=== PATIENT | female | born 1975 | race Caucasian/White ===

== ENCOUNTER 2016-04-05 13:05 | Inpatient (IN) | payer OTHER ==
[2016-04-05 15:09] VITALS: BMI 20.2
--- NOTE | 2016-04-05 15:39 | HP ---
CIWA Score - CIWA Score Nausea/Vomitin-No Nausea/No Vomiting Muscle Tremors: 4-Moderate,w/Arms Extend Anxiety: 4-Mod. Anxious/Guarded Agitation: 4-Moderately Restless Paroxysmal Sweats: 3 Orientation: 0-Oriented Tacttile Disturbances: 0-None Auditory Disturbances: 0-None Visual Disturbances: 0-None Headache: 1-Very Mild CIWA-Ar Total Score: 16 Admission ROS BHS - HPI Chief Complaint: I am here for detox for treatment. Allergies/Adverse Reactions: Allergies Allergy/AdvReac Type Severity Reaction Status Date / Time Fish Containing Products Allergy Severe Swelling Verified 04/05/16 15:18 NKDA Allergy Uncoded 04/05/16 15:19 History of Present Illness: Pt is a 41yr old female with a history of alcohol dependence seeking detox for treatment. pt is on a [facility] program getting 70mg of methadone last dose receive today. Exam Limitations: Other (very sleepy/groggy) - Ebola screening Have you traveled outside of the country in the last 21 days: No Have you had contact with anyone from an Ebola affected area: No Have you been sick,other than usual withdrawal symptoms: No Do you have a fever: No - Review of Systems Constitutional: Chills, Diaphoresis, Loss of Appetite, Night Sweats EENT: reports: Tearing, Nose Congestion Respiratory: reports: No Symptoms reported Cardiac: reports: No Symptoms Reported GI: reports: Poor Appetite, Poor Fluid Intake : reports: No Symptoms Reported Musculoskeletal: reports: No Symptoms Reported Integumentary: reports: Flushing, Sweating Neuro: reports: Headache, Tingling, Tremors Endocrine: reports: Excessive Sweating, Flushing, Intolerance to Cold, Intolerance to Heat Hematology: reports: No Symptoms Reported Psychiatric: reports: Judgement Intact, Mood/Affect Appropiate, Orientated x3, Agitated, Anxious Other Systems: Reviewed and Negative Patient History - Patient Medical History Hx Anemia: No Hx Asthma: No Hx Chronic Obstructive Pulmonary Disease (COPD): No Hx Cancer: No Hx Cardiac Disorders: No Hx Congestive Heart Failure: No Hx Hypertension: No Hx Hypercholesterolemia: No Hx Pacemaker: No HX Cerebrovascular Accident: No Hx Seizures: No Hx Dementia: No Hx Diabetes: No Hx Gastrointestinal Disorders: No Hx Liver Disease: No Hx Genitourinary Disorders: No Hx Sexually Transmitted Disorders: No Hx Renal Disease (ESRD): No Hx Thyroid Disease: No Hx Human Immunodeficiency Virus (HIV): No (negative) Hx Hepatitis C: Yes Hx Depression: No Hx Suicide Attempt: No (denies) Hx Bipolar Disorder: No Hx Schizophrenia: No - Patient Surgical History Past Surgical History: Yes Hx Section: Yes (2 ) - PPD History Previous Implant?: Yes Documented Results: Negative w/o proof Implanted On Prior [facility] Admission?: No PPD to be Administered?: Yes - Reproductive History Patient is a Female of Child Bearing Age (11 -55 yrs old): Yes Last Menstrual Period: 03/19/16 Patient : No - Smoking Cessation Smoking history: Current every day smoker Have you smoked in the past 12 months: Yes Aproximately how many cigarettes per day: 10 Hx Chewing Tobacco Use: No Initiated information on smoking cessation: Yes 'Breaking Loose' booklet given: 04/05/16 - Substance & Tx. History Hx Alcohol Use: Yes Hx Substance Use: Yes Substance Use Type: None, Cocaine, Heroin Hx Substance Use Treatment: Yes - Substances Abused Heroin Route: Injection Frequency: Daily Amount used: 5-10bags Age of first use: 19 Date of Last Use: 04/05/16 Cocaine Route: Injection Frequency: Daily Amount used: 5-10 bags Age of first use: 19 Date of Last Use: 04/05/16 Alcohol-beer Route: Oral Frequency: Daily Amount used: 2-3 40oz beer Age of first use: 30 Date of Last Use: 04/05/16 Family Disease History - Family Disease History Family History: Denies Admission Physical Exam S - Vital Signs Vital Signs: Vital Signs - 24 hr 04/05/16 15:04 Temperature 97.6 F Pulse Rate 76 Respiratory 16 Rate Blood Pressure 105/63 - Physical General Appearance: Yes: Appropriately Dressed, Moderate Distress, Thin, Tremorous, Irritable, Sweating HEENTM: Yes: Normal Voice, Rhinorrhea Respiratory: Yes: Lungs Clear, Normal Breath Sounds, No Respiratory Distress Neck: Yes: No masses,lesions,Nodules Breast: Yes: Within Normal Limits Cardiology: Yes: Regular Rhythm, Regular Rate, S1, S2 Abdominal: Yes: Normal Bowel Sounds Genitourinary: Yes: Within Normal Limits Back: Yes: Normal Inspection Musculoskeletal: Yes: Gait Steady Extremities: Yes: Normal Capillary Refill, Normal Inspection, Non-Tender, Tremors Neurological: Yes: Fully Oriented, Alert, Normal Response Integumentary: Yes: Normal Color, Diaphoresis, Track [place] Lymphatic: Yes: Within Normal Limits - Diagnostic (1) Cocaine dependence Current Visit: Yes Status: Chronic Qualifiers: Substance use status: uncomplicated Qualified Code(s): F14.20 - Cocaine dependence, uncomplicated (2) Uncomplicated opioid dependence Current Visit: Yes Status: Chronic (3) Alcohol dependence with uncomplicated withdrawal Current Visit: Yes Status: Chronic (4) Nicotine dependence Current Visit: Yes Status: Chronic Qualifiers: Nicotine product type: cigarettes Substance use status: uncomplicated Qualified Code(s): F17.210 - Nicotine dependence, cigarettes, uncomplicated (5) Hepatitis C Current Visit: Yes Status: Chronic Cleared for Admission S - Detox or Rehab [facility] Level of Care: Medically Managed Detox Regimen/Protocol: Librium [facility] Breath Alcohol Content Breath Alcohol Content: 0 Urine Pregancy Test - Result Urine Test Results: Negative- NO Line Present Urine Drug Screen - Results Urine Drug Screen Results: BELLA-Cocaine, OPI-Opiates, MTD-Methadone, OXY- Oxycodone
[2016-04-05] MEDS ORDERED: MAG HYDROX/AL HYDROX/SIMETH 30 ML UNIT-DOSE CUP PO PRN (16:00)
[2016-04-05] MEDS ORDERED: guaiFENesin/D-METHORPHAN HB 10 ML UNIT-DOSE CUPS PO PRN (16:00)
[2016-04-05] MEDS ORDERED: ACETAMINOPHEN 325 MG TABLET (FP) PO PRN (16:00)
[2016-04-05] MEDS ORDERED: hydrOXYzine PAMOATE 50 MG CAPSULE (FP) PO PRN (16:00)
[2016-04-05] MEDS ORDERED: LOPERAMIDE HCL 2 MG CAPSULE PO PRN (16:00)
[2016-04-05] MEDS ORDERED: MAGNESIUM CITRATE 300 ML BOTTLE PO PRN (16:00)
[2016-04-05] MEDS ORDERED: chlordiazePOXIDE HCL 25 MG CAPSULE PO PRN (16:00)
[2016-04-05] MEDS ORDERED: IBUPROFEN 400 MG TABLET (FP) PO PRN (16:00)
[2016-04-05] MEDS ORDERED: P-EPHED 60MG/TRIPROLIDI 2.5MG TABLET PO PRN (16:00)
[2016-04-05] MEDS ORDERED: MENTHOL/PHENOL 1 EACH UD MM PRN (16:00)
[2016-04-05] MEDS ORDERED: diphenhydrAMINE HCL 50 MG CAPSULE PO PRN (16:00)
[2016-04-05] MEDS ORDERED: MAGNESIUM HYDROX 2400MG/30ML ORAL SUSPENSION 30 ML CUP PO PRN (16:00)
[2016-04-05] MEDS ORDERED: chlordiazePOXIDE HCL 25 MG CAPSULE PO ONE (17:30)
[2016-04-05] MEDS: chlordiazePOXIDE HCL 25 MG CAPSULE PO SCH ×2 (17:32→22:11)
[2016-04-05] MEDS: THIAMINE HCL 100 MG TABLET (FP) PO SCH (22:11)
[2016-04-06 03:16] LABS: URINE APPEARANCE SLCLOUDY; URINE BILIRUBIN NEGATIVE (NEGATIVE); URINE BLOOD NEGATIVE (NEGATIVE); URINE COLOR YELLOW; URINE GLUCOSE (UA) NEGATIVE (NEGATIVE); URINE KETONE NEGATIVE (NEGATIVE); URINE LEUK ESTERASE NEGATIVE (NEGATIVE); URINE NITRITE POSITIVE (NEGATIVE); URINE PROTEIN NEGATIVE (NEGATIVE); URINE UROBILINOGEN 4.0 E.U/dl E.U./dl (0.2-1.0)
[2016-04-06 03:39] LABS: URINE BACTERIA RARE /hpf (NONE SEEN); URINE MUCUS RARE; URINE RBC 1 /hpf (0-3); URINE WBC 2 /hpf (3-5)
[2016-04-06] MEDS: chlordiazePOXIDE HCL 25 MG CAPSULE PO SCH ×4 (06:04→22:33)
[2016-04-06] MEDS ORDERED: METHADONE HCL 10 MG TABLET PO ONE (10:44)
[2016-04-06] MEDS: NICOTINE POLACRILEX 4 MG GUM BC PRN (10:53)
[2016-04-06] MEDS: PRENATAL VITAMINS W/ FOLIC ACID TABLET (FP) PO SCH (10:53)
[2016-04-06] MEDS: NICOTINE 21 MG/24 HOURS TOPICAL PATCH TD SCH (10:53)
[2016-04-06 11:14] LABS: ALBUMIN 3.1 g/dl (3.4-5.0); ANION GAP 7 (8-16); CALCIUM 8.3 mg/dL (8.5-10.1); CO2 27 mmol/L (21-32); GLUCOSE,RANDOM 103 mg/dL (74-106); SGOT/AST 41 U/L (15-37); SGPT/ALT 43 U/L (12-78)
[2016-04-06] MEDS ORDERED: METHADONE 40 MG, METHADONE 30 MG PO ONE (11:15)
[2016-04-06 11:16] LABS: ALK PHOS 47 U/L (45-117); BILIRUBIN,TOTAL 0.2 mg/dL (0.2-1.0); CREATININE 0.9 mg/dL (0.55-1.02); TOT PROT 6.5 g/dl (6.4-8.2)
[2016-04-06 11:18] LABS: MCH 24.7 pg (25.7-33.7); MEAN CELL VOLUME 77.2 fl (80-96); MEAN PLT VOLUME 9.1 fl (7.5-11.1); PLATELET COUNT 77 K/MM3 (134-434); RDW 16.5 % (11.6-15.6)
[2016-04-06 11:22] LABS: WHITE BLOOD COUNT 1.6 K/mm3 (4.0-10.0)
[2016-04-06] MEDS ORDERED: METHADONE HCL 10 MG TABLET ONE (11:31)
[2016-04-06] MEDS ORDERED: METHADONE HCL 40 MG DISPERSABLE TABLET ONE (11:31)
--- NOTE | 2016-04-06 12:35 | PN ---
S CIWA - CIWA Score Nausea/Vomitin Muscle Tremors: 3 Anxiety: 3 Agitation: 3 Paroxysmal Sweats: 1-Minimal Palms Moist Orientation: 0-Oriented Tacttile Disturbances: 1-Very Mild Itch/Numbness Auditory Disturbances: 1-Very Mild Visual Disturbances: 1-Very Mild Sensitivity Headache: 2-Mild CIWA-Ar Total Score: 18 S Progress Note (SOAP) Subjective: ALERT,IRRITABLE,ANXIOUS,INTERRUPTED SLEEP,TREMOR,PAIN IN THE BODY Objective: 04/06/16 12:29 Vital Signs Temperature 96.4 F L 04/06/16 09:43 Pulse Rate 77 04/06/16 09:43 Respiratory Rate 18 04/06/16 09:43 Blood Pressure 104/79 04/06/16 09:43 O2 Sat by Pulse Oximetry (%) EKG NSR 64/MIN NO CHEST PAIN,NO SOB,NO DIZZINESS Laboratory Last Values WBC 1.6 K/mm3 (4.0-10.0) L 04/06/16 07:50 RBC 3.87 M/mm3 (3.60-5.2) 04/06/16 07:50 Hgb 9.6 GM/dL (10.7-15.3) L 04/06/16 07:50 Hct 29.8 % (32.4-45.2) L 04/06/16 07:50 MCV 77.2 fl (80-96) L 04/06/16 07:50 MCHC 32.0 g/dl (32.0-36.0) 04/06/16 07:50 RDW 16.5 % (11.6-15.6) H 04/06/16 07:50 Plt Count 77 K/MM3 (134-434) L 04/06/16 07:50 MPV 9.1 fl (7.5-11.1) 04/06/16 07:50 Sodium 144 mmol/L (136-145) 04/06/16 07:50 Potassium 3.8 mmol/L (3.5-5.1) 04/06/16 07:50 Chloride 110 mmol/L (98-107) H 04/06/16 07:50 Carbon Dioxide 27 mmol/L (21-32) 04/06/16 07:50 Anion Gap 7 (8-16) L 04/06/16 07:50 BUN 16 mg/dL (7-18) 04/06/16 07:50 Creatinine 0.9 mg/dL (0.55-1.02) 04/06/16 07:50 Creat Clearance w eGFR > 60 (>60) 04/06/16 07:50 Random Glucose 103 mg/dL (74-106) 04/06/16 07:50 Calcium 8.3 mg/dL (8.5-10.1) L 04/06/16 07:50 Total Bilirubin 0.2 mg/dL (0.2-1.0) 04/06/16 07:50 AST 41 U/L (15-37) H 04/06/16 07:50 ALT 43 U/L (12-78) 04/06/16 07:50 Alkaline Phosphatase 47 U/L (45-117) 04/06/16 07:50 Total Protein 6.5 g/dl (6.4-8.2) 04/06/16 07:50 Albumin 3.1 g/dl (3.4-5.0) L 04/06/16 07:50 Urine Color Yellow 04/05/16 23:08 Urine Appearance Slcloudy 04/05/16 23:08 Urine pH 6.0 (5.0-8.0) 04/05/16 23:08 Ur Specific [place] 1.017 (1.001-1.035) 04/05/16 23:08 Urine Protein Negative (NEGATIVE) 04/05/16 23:08 Urine Glucose (UA) Negative (NEGATIVE) 04/05/16 23:08 Urine Ketones Negative (NEGATIVE) 04/05/16 23:08 Urine Blood Negative (NEGATIVE) 04/05/16 23:08 Urine Nitrite Positive (NEGATIVE) 04/05/16 23:08 Urine Bilirubin Negative (NEGATIVE) 04/05/16 23:08 Urine Urobilinogen 4.0 e.u/dl E.U./dl (0.2-1.0) H 04/05/16 23:08 Ur Leukocyte Esterase Negative (NEGATIVE) 04/05/16 23:08 Urine RBC 1 /hpf (0-3) 04/05/16 23:08 Urine WBC 2 /hpf (3-5) 04/05/16 23:08 Ur Epithelial Cells Few /hpf (FEW) 04/05/16 23:08 Urine Bacteria Rare /hpf (NONE SEEN) 04/05/16 23:08 Urine Mucus Rare 04/05/16 23:08 04/06/16 12:34 LABS PENDING Assessment: 04/06/16 12:35 WITHDRAWAL SYMPTOM Plan: CONTINUE DETOX,ENSURE PLUS 120 MLS PO BID,FERROUS SULFATE 325 MGS PO BID,REPEAT CBC ON Fri04/08/16 ALSO MENTIONED HISTORY OF PANCYTOPENIA
--- NOTE | 2016-04-06 12:39 | PN ---
BHS Progress Note Note: PANCYTOPENIA PROBABLY RELATED TO ALCOHOL DEPENDENCE,REPEAT CBC IN AM
--- NOTE | 2016-04-06 13:39 | EKG ---
Test Reason : Blood Pressure : / mmHG Vent. Rate : 064 BPM Atrial Rate : 064 BPM P-R Int : 158 ms QRS Dur : 080 ms QT Int : 412 ms P-R-T Axes : 054 063 073 degrees QTc Int : 425 ms NORMAL SINUS RHYTHM NONSPECIFIC T WAVE ABNORMALITY ABNORMAL ECG NO PREVIOUS ECGS AVAILABLE Confirmed by NICKOLAS BARBOZA MD ([id number]) on 04/06/2016 1:39:00 PM Referred By: Confirmed By:NICKOLAS BARBOZA MD
[2016-04-06] MEDS: THIAMINE HCL 100 MG TABLET (FP) PO SCH (22:33)
[2016-04-07] MEDS ORDERED: METHADONE HCL 40 MG DISPERSABLE TABLET ONE (04:27)
[2016-04-07] MEDS ORDERED: METHADONE HCL 10 MG TABLET ONE (04:27)
[2016-04-07] MEDS ORDERED: METHADONE HCL 40 MG DISPERSABLE TABLET PO SCH (06:00)
[2016-04-07] MEDS: chlordiazePOXIDE HCL 25 MG CAPSULE PO SCH ×2 (06:27→10:20)
[2016-04-07] MEDS: METHADONE 40 MG, METHADONE 30 MG PO SCH (08:39)
[2016-04-07 10:10] LABS: MCH 24.9 pg (25.7-33.7); MCHC 32.5 g/dl (32.0-36.0); MEAN CELL VOLUME 76.7 fl (80-96); MEAN PLT VOLUME 9.1 fl (7.5-11.1); PLATELET COUNT 75 K/MM3 (134-434); RDW 16.8 % (11.6-15.6)
[2016-04-07] MEDS: NICOTINE 21 MG/24 HOURS TOPICAL PATCH TD SCH (10:20)
[2016-04-07] MEDS: PRENATAL VITAMINS W/ FOLIC ACID TABLET (FP) PO SCH (10:20)
[2016-04-07 10:33] LABS: WHITE BLOOD COUNT 1.9 K/mm3 (4.0-10.0)
--- NOTE | 2016-04-07 12:28 | PN ---
[facility] CIWA - CIWA Score Nausea/Vomitin-No Nausea/No Vomiting Muscle Tremors: 4-Moderate,w/Arms Extend Anxiety: 4-Mod. Anxious/Guarded Agitation: 4-Moderately Restless Paroxysmal Sweats: 3 Orientation: 0-Oriented Tacttile Disturbances: 0-None Auditory Disturbances: 0-None Visual Disturbances: 0-None Headache: 0-None Present CIWA-Ar Total Score: 15 BHS Progress Note (SOAP) Subjective: anxiety,tremors,sweating,interrupted sleep,restless. Objective: 04/07/16 12:27 Vital Signs - 8 hr 04/07/16 04/07/16 06:00 10:00 Temperature 98.3 F 98.4 F Pulse Rate 87 93 H Respiratory 16 18 Rate Blood Pressure 101/66 115/67 Laboratory Tests 04/05/16 04/06/16 04/06/16 23:08 07:50 07:50 WBC 1.6 L RBC 3.87 Hgb 9.6 L Hct 29.8 L MCV 77.2 L MCHC 32.0 RDW 16.5 H Plt Count 77 L MPV 9.1 Sodium 144 Potassium 3.8 Chloride 110 H Carbon Dioxide 27 Anion Gap 7 L BUN 16 Creatinine 0.9 Creat Clearance w eGFR > 60 Random Glucose 103 Calcium 8.3 L Total Bilirubin 0.2 AST 41 H ALT 43 Alkaline Phosphatase 47 Total Protein 6.5 Albumin 3.1 L Urine Color Yellow Urine Appearance Slcloudy Urine pH 6.0 Ur Specific [place] 1.017 Urine Protein Negative Urine Glucose (UA) Negative Urine Ketones Negative Urine Blood Negative Urine Nitrite Positive Urine Bilirubin Negative Urine Urobilinogen 4.0 e.u/dl H Ur Leukocyte Esterase Negative Urine RBC 1 Urine WBC 2 Ur Epithelial Cells Few Urine Bacteria Rare Urine Mucus Rare RPR Titer T.pallidum Ab ([facility]) 04/06/16 04/07/16 07:50 07:50 WBC 1.9 L RBC 3.67 Hgb 9.1 L Hct 28.2 L MCV 76.7 L MCHC 32.5 RDW 16.8 H Plt Count 75 L MPV 9.1 Sodium Potassium Chloride Carbon Dioxide Anion Gap BUN Creatinine Creat Clearance w eGFR Random Glucose Calcium Total Bilirubin AST ALT Alkaline Phosphatase Total Protein Albumin Urine Color Urine Appearance Urine pH Ur Specific [place] Urine Protein Urine Glucose (UA) Urine Ketones Urine Blood Urine Nitrite Urine Bilirubin Urine Urobilinogen Ur Leukocyte Esterase Urine RBC Urine WBC Ur Epithelial Cells Urine Bacteria Urine Mucus RPR Titer Reactive 1:4 H T.pallidum Ab ([facility]) Non reactive labs noted Assessment: 04/07/16 12:28 withdrawal sx. Plan: continue detox
[2016-04-07] MEDS: chlordiazePOXIDE 5 MG CAPSULE PO SCH ×2 (17:37→22:09)
[2016-04-07] MEDS: FERROUS SO4 325 MG TABLET (FP) PO SCH (17:38)
[2016-04-07] MEDS: NICOTINE POLACRILEX 4 MG GUM BC PRN (20:15)
[2016-04-07] MEDS: THIAMINE HCL 100 MG TABLET (FP) PO SCH (22:09)
[2016-04-08] MEDS ORDERED: METHADONE HCL 40 MG DISPERSABLE TABLET ONE (04:55)
[2016-04-08] MEDS ORDERED: METHADONE HCL 10 MG TABLET ONE (04:55)
[2016-04-08] MEDS: chlordiazePOXIDE 5 MG CAPSULE PO SCH ×2 (05:56→10:07)
[2016-04-08 07:49] VITALS: BP 100/60
[2016-04-08] MEDS: METHADONE 40 MG, METHADONE 30 MG PO SCH (07:53)
[2016-04-08] MEDS: FERROUS SO4 325 MG TABLET (FP) PO SCH (07:54)
[2016-04-08] MEDS: PRENATAL VITAMINS W/ FOLIC ACID TABLET (FP) PO SCH (10:05)
[2016-04-08] MEDS: NICOTINE POLACRILEX 4 MG GUM BC PRN (10:06)
[2016-04-08] MEDS: NICOTINE 21 MG/24 HOURS TOPICAL PATCH TD SCH (10:06)
[2016-04-08 10:15] VITALS: PULSE 88; TEMP 98.2
--- NOTE | 2016-04-08 10:42 | PN ---
BHS Progress Note (SOAP) Subjective: achy joints sweats agitation Objective: 04/08/16 10:36 Vital Signs Temperature 98.2 F 04/08/16 10:14 Pulse Rate 88 04/08/16 10:14 Respiratory Rate 18 04/08/16 10:14 Blood Pressure 100/60 04/08/16 10:14 O2 Sat by Pulse Oximetry (%) Laboratory Tests 04/05/16 04/06/16 04/06/16 23:08 07:50 07:50 WBC 1.6 L RBC 3.87 Hgb 9.6 L Hct 29.8 L MCV 77.2 L MCHC 32.0 RDW 16.5 H Plt Count 77 L MPV 9.1 Sodium 144 Potassium 3.8 Chloride 110 H Carbon Dioxide 27 Anion Gap 7 L BUN 16 Creatinine 0.9 Creat Clearance w eGFR > 60 Random Glucose 103 Calcium 8.3 L Total Bilirubin 0.2 AST 41 H ALT 43 Alkaline Phosphatase 47 Total Protein 6.5 Albumin 3.1 L Urine Color Yellow Urine Appearance Slcloudy Urine pH 6.0 Ur Specific [place] 1.017 Urine Protein Negative Urine Glucose (UA) Negative Urine Ketones Negative Urine Blood Negative Urine Nitrite Positive Urine Bilirubin Negative Urine Urobilinogen 4.0 e.u/dl H Ur Leukocyte Esterase Negative Urine RBC 1 Urine WBC 2 Ur Epithelial Cells Few Urine Bacteria Rare Urine Mucus Rare RPR Titer T.pallidum Ab ([facility]) 04/06/16 04/07/16 07:50 07:50 WBC 1.9 L RBC 3.67 Hgb 9.1 L Hct 28.2 L MCV 76.7 L MCHC 32.5 RDW 16.8 H Plt Count 75 L MPV 9.1 Sodium Potassium Chloride Carbon Dioxide Anion Gap BUN Creatinine Creat Clearance w eGFR Random Glucose Calcium Total Bilirubin AST ALT Alkaline Phosphatase Total Protein Albumin Urine Color Urine Appearance Urine pH Ur Specific [place] Urine Protein Urine Glucose (UA) Urine Ketones Urine Blood Urine Nitrite Urine Bilirubin Urine Urobilinogen Ur Leukocyte Esterase Urine RBC Urine WBC Ur Epithelial Cells Urine Bacteria Urine Mucus RPR Titer Reactive 1:4 H T.pallidum Ab ([facility]) Non reactive awake/alert ambulating no acute distress pt made aware of 1:4 rpr result; pt states she received her 3 antibiotic injection many years ago and her result will always come back 1:4 repeated labs again cbc. Assessment: 04/08/16 10:41 withdrawal sx Plan: continue detox increase fluids motrin prn repeat labs again iron sulfate TID d/c in am
--- NOTE | 2016-04-08 11:44 | PN ---
S Progress Note Note: Pt states she needs to leave because she wants to go see her daughter and other personal issues.
--- NOTE | 2016-04-08 11:45 | DS ---
[facility] Detox Discharge Summary Admission Date: 04/05/16 Discharge Date: 04/08/16 - History Present History: Alcohol Dependence, Cocaine Dependence, Opioid Dependence - Physical Exam Results Vital Signs: Vital Signs Temperature 98.2 F 04/08/16 10:14 Pulse Rate 88 04/08/16 10:14 Respiratory Rate 18 04/08/16 10:14 Blood Pressure 100/60 04/08/16 10:14 O2 Sat by Pulse Oximetry (%) - Diagnosis (1) Cocaine dependence Current Visit: Yes Status: Chronic Qualifiers: Substance use status: uncomplicated Qualified Code(s): F14.20 - Cocaine dependence, uncomplicated (2) Uncomplicated opioid dependence Current Visit: Yes Status: Chronic (3) Alcohol dependence with uncomplicated withdrawal Current Visit: Yes Status: Chronic (4) Nicotine dependence Current Visit: Yes Status: Chronic Qualifiers: Nicotine product type: cigarettes Substance use status: uncomplicated Qualified Code(s): F17.210 - Nicotine dependence, cigarettes, uncomplicated (5) Hepatitis C Current Visit: Yes Status: Chronic - AMA Did Patient Leave Against Medical Advice: Yes
[2016-04-08] MEDS ORDERED: FERROUS SO4 325 MG TABLET (FP) PO SCH (14:00)
[2016-04-08 14:36] LABS: BASOPHIL 0.5 % (0-2.0); EOSINOPHIL 0.1 % (0-4.5); MCH 24.9 pg (25.7-33.7); MEAN CELL VOLUME 77.7 fl (80-96); MEAN PLT VOLUME 9.3 fl (7.5-11.1); NEUTROPHILS 52.8 % (42.8-82.8); PLATELET COUNT 80 K/MM3 (134-434); RDW 17.2 % (11.6-15.6)
[2016-04-08 14:38] LABS: WHITE BLOOD COUNT 1.8 K/mm3 (4.0-10.0)
[2016-04-08] MEDS ORDERED: chlordiazePOXIDE HCL 10 MG CAPSULE PO SCH (17:00)
== END 2016-04-08 12:40 | disposition left against medical advice (07) | DRG 770 ==
LOC: YASAS 13:05 → Y6N 16:20
PROVIDERS: ADMIT Internal Medicine; ATTEND Internal Medicine
PROC: HZ2ZZZZ Detoxification Services for Substance Abuse Treatment (ICD-10-PCS; principal; 2016-04-08)
DX: F11.20 Opioid dependence, uncomplicated (principal); F10.230 Alcohol dependence with withdrawal, uncomplicated; F14.20 Cocaine dependence, uncomplicated; F17.210 Nicotine dependence, cigarettes, uncomplicated; B18.2 Chronic viral hepatitis C
CPT/HCPCS: 36415; 80053; 81003; 81015; 85025; 85027; 86593; 86780; 93005; 93010